=== PATIENT | female | born 1935 ===

== ENCOUNTER 2019-01-21 06:17 | Day surgery (SDC) | payer OTHER ==
[~2019-01-21 06:17] MED LIST: ASPIR 8181 MG PO; COZAAR100 MG PO; FORTAMET1000 MG PO; HYDROCHLOROTHIAZIDE PO; OMEPRAZOLE PO; ZOCOR20 MG PO
== END 2019-01-21 17:40 | disposition home or self-care (01) ==
LOC: CIR.AMB 06:17
DX: D05.12 Intraductal carcinoma in situ of left breast (principal)